=== PATIENT | male | born 1940 | race Caucasian/White ===

== ENCOUNTER 2022-11-24 05:30 | Day surgery (SDC) | payer MEDICARE ==
[2022-11-19 14:28] LABS: BASOPHILS % (AUTO) 1.2 % (0-1); EOSINOPHILS # (AUTO) 0.1 X10'3 (0-0.9); EOSINOPHILS % (AUTO) 2.2 % (0-6); LYMPHOCYTES # (AUTO) 1.1 X10'3 (1.1-4.8); LYMPHOCYTES % (AUTO) 31.6 % (21-51); MEAN CORPUSCULAR HEMOGLOBIN 34.7 PG (27.0-31.0); MEAN CORPUSCULAR HGB CONC 34.4 g/dL (33.0-36.5); MONOCYTES # (AUTO) 0.3 X10'3 (0-0.9); MONOCYTES % (AUTO) 7.6 % (2-12); NEUTROPHILS % (AUTO) 57.4 % (42-75); PRE OP HEMATOCRIT 45.6 % (42.0-52.0); PRE OP HEMOGLOBIN 15.7 g/dL (14.0-17.9); PRE OP PLATELET COUNT 111 X10'3 (140-440); RED BLOOD COUNT 4.51 X10'6 (4.70-6.10); RED CELL DISTRIBUTION WIDTH 13.1 % (11.5-14.5)
[2022-11-19 14:29] LABS: CLARITY,URINE CLEAR (Clear); COLOR,URINE YELLOW (Yellow); GLUCOSE, URINE NEGATIVE (Neg); KETONES,URINE NEGATIVE (Neg); LEUKOCYTE ESTERASE ,URINE NEGATIVE (Neg); NITRITES, URINE NEGATIVE (Neg); OCCULT BLOOD,URINE NEGATIVE (Neg); PH,URINE 5.5 (4.8-8.0); PROTEIN,URINE NEGATIVE (Neg)
[2022-11-19 14:34] LABS: UA COLLECTION TYPE CLN CATCH MIDSTREAM
[2022-11-19 14:51] LABS: PRE OP INR 1.1 INR; PRE OP PROTIME 11.5 SECONDS (9.0-12.0)
[2022-11-19 14:54] LABS: ALBUMIN 4.1 G/DL (3.4-5.0); ALKALINE PHOSPHATASE 94 IU/L (46-116); BLOOD UREA NITROGEN 12 MG/DL (7-18); CALCIUM 9.3 MG/DL (8.5-10.1); CHLORIDE 102 MMOL/L (99-107); CREATININE 0.92 MG/DL (0.60-1.10); PRE OP ALT 47 U/L (30-65); PRE OP ANION GAP 11 (8-16); PRE OP AST 36 U/L (10-37); PRE OP GLUCOSE 140 MG/DL (70-104); PRE OP POTASSIUM 4.1 MMOL/L (3.4-5.1); PRE OP SODIUM 141 MMOL/L (135-145); TOTAL CARBON DIOXIDE 27.9 MMOL/L (24-32); TOTAL PROTEIN 8.1 G/DL (6.4-8.2); eGFR 79 ML/MIN
[2022-11-24] VITALS (11 sets, daily range): BP systolic 130–163; BP diastolic 72–93; PULSE 64–75; RESP 11–16; TEMP 98.1; O2SAT 93–100
[~2022-11-24] VITALS: Ht 167.6 cm; Wt 82.1 kg
[~2022-11-24 05:30] MED LIST: ATOR20TA66 PO; LISI2.5T14 PO; METF-436 PO; cefazolin 2gm/D5W 100mL 100 ML IV ONE; famotidine 20mg tablet PO ONE; ringers solution, lacted 1,000 ML IV SCH
[2022-11-24] MEDS ORDERED: BUPIVAcaine/PF 2.5 mg/ml (0.25%) 30ml vial ONE (08:23)
[2022-11-24] MEDS ORDERED: glycopyrrolate 0.2mg/ml inj ONE (08:32)
[2022-11-24] MEDS ORDERED: desflurane 240ml liquid inh. IH ONE (08:32)
[2022-11-24] MEDS ORDERED: neostigmine methylsulfate 1 MG/ML 10ml vial ONE (08:32)
[2022-11-24] MEDS ORDERED: midazolam 1 mg/ML 2ml injection ONE (08:38)
[2022-11-24] MEDS ORDERED: fentaNYL/PF 50MCG/1 ML 2ML syringe ONE (08:38)
[2022-11-24] MEDS ORDERED: rocuronium 10mg/ml inj IV ONE (08:41)
[2022-11-24] MEDS ORDERED: LIDOcaine 2% (20mg/ml) 5ml vial ONE (08:41)
[2022-11-24] MEDS ORDERED: propofol inj 20 ML IV ONE (08:41)
[2022-11-24] MEDS ORDERED: dexamethasone sod phosphate 4mg/ml inj. ONE (08:42)
[2022-11-24] MEDS ORDERED: ondansetron/PF 4mg/2ml inj ONE (08:42)
[2022-11-24] MEDS ORDERED: acetaminophen 1,000mg/100ml IV 100 ML IV ONE (08:58)
[2022-11-24] MEDS ORDERED: BUPIVAcaine 0.25% w/Epi /PF 30ml vial IJ ONE ×2 (09:22→10:09)
[2022-11-24] MEDS ORDERED: labetalol 20mg/4ml (5mg/ml) syringe IV ONE (09:29)
[2022-11-24] MEDS ORDERED: labetalol 20mg/4ml (5mg/ml) syringe IV PRN (09:30)
[2022-11-24] MEDS ORDERED: morphine 4 MG/ML inj SYRINge IV PRN (09:30)
[2022-11-24] MEDS ORDERED: proCHLORperazine 10 MG/2 ml inj IV PRN (09:30)
[2022-11-24] MEDS ORDERED: ringers solution, lacted 1,000 ML IV SCH (09:30)
[2022-11-24] MEDS ORDERED: enalaprilat dihydrate 2.5mg/2ml vial IV PRN (09:30)
[2022-11-24] MEDS ORDERED: meperidine/PF 25mg/ml syringe IV PRN ×2 (09:30)
[2022-11-24] MEDS ORDERED: morphine 2 MG/ML inj. syringe IV PRN (09:30)
[2022-11-24] MEDS ORDERED: ondansetron/PF 4mg/2ml inj IV PRN (09:30)
--- NOTE | 2022-11-24 10:18 | NUR ---
Received from OR via HU, accompanied by Anesthesiologist DR ACOSTA and report given by Anesthesiologist AND [employer] OPERATOR MAINTAINER. PT ALBERTSY, DENIES PAIN. ABDOMEN W/3 LAP SITES W/DERMABOND CDI. Addendum: 11/24/22 at 1056 by Nkechi Pickard RN Amended: Links added.
[2022-11-24] MEDS: meperidine/PF 25mg/ml syringe IV PRN ×2 (10:34→10:40)
--- NOTE | 2022-11-24 12:28 | NUR ---
PT UP AND ABLE TO AMBULATE SLOWLY BUT SAFELY. BLADDER SCANNED PT FOR 375 MLS URINE, PT VOIDED X 2, POST RESIDUAL URINE WAS LESS THAN 100 ML. D/C INSTRUCTIONS GIVEN TO PT AND PTS INCLUDING IF PT IS UNABLE TO VOID HE WILL NEED TO RETURN TO THE ED FOR A CATHETER PLACEMENT, PT AND PTS VERBALIZED UNDERSTANDING. PT D/CD TO HOME VIA W/C TO PRIVATE VEHICLE W/O INCIDENT. Addendum: 11/24/22 at 1256 by Nkechi Pickard RN Amended: Links added.
== END 2022-11-24 12:28 | disposition home or self-care (01) ==
LOC: PAS 05:30
PROVIDERS: ATTEND Surgery
DX: K40.90 Unilateral inguinal hernia, without obstruction or gangrene, not specified as recurrent (principal); D17.6 Benign lipomatous neoplasm of spermatic cord; I10 Essential (primary) hypertension; E78.5 Hyperlipidemia, unspecified; E11.9 Type 2 diabetes mellitus without complications; Z98.890 Other specified postprocedural states; Z72.89 Other problems related to lifestyle; Z79.899 Other long term (current) drug therapy; Z79.84 Long term (current) use of oral hypoglycemic drugs; Z98.41 Cataract extraction status, right eye; Z98.42 Cataract extraction status, left eye; Z87.891 Personal history of nicotine dependence; Z79.01 Long term (current) use of anticoagulants; Z80.0 Family history of malignant neoplasm of digestive organs
CPT/HCPCS: 36415; 49650; 80053; 81003; 82948; 85025; 85610; 85730; 93005; C1781; J0131; J0690; J1100; J2175; J2250; J2405; J2704; J2710; J3010; J3490; J7030; J7120; S0020; Z7506; Z7508; Z7512; A4215; A4618; C1758